=== PATIENT | male | born 1970 | race Caucasian/White ===

== ENCOUNTER 2023-05-12 06:28 | Day surgery (SDC) | payer OTHER ==
[~2023-05-12] VITALS: Ht 172.7 cm; Wt 92.9 kg
[~2023-05-12 06:28] MED LIST: LR 1,000 ML IV SCH; Ondansetron 4 MG/2 ML VIAL IV PRN
[2023-05-12 06:48] VITALS: BP 142/77; PULSE 90; TEMP 97.2
[2023-05-12] MEDS ORDERED: ZETIA 10MG TAB10 MG PO (07:12)
[2023-05-12] MEDS ORDERED: FOLIC ACID 11 MG/TA1 PO (07:12)
[2023-05-12] MEDS ORDERED: NATURAL IRON65 MG (07:13)
[2023-05-12] MEDS ORDERED: SYNTHROID0.112 MG/T PO (07:13)
[2023-05-12] MEDS ORDERED: PRINIVIL40 MG PO (07:14)
[2023-05-12] MEDS ORDERED: PRILOSEC 20MG20 MG PO (07:14)
[2023-05-12] MEDS ORDERED: GLUCOPHAGE850 MG/TAB PO (07:14)
[2023-05-12] MEDS ORDERED: ANDROGEL162PKT TOP (07:15)
[2023-05-12] MEDS ORDERED: ACTOS30 MG PO (07:15)
[2023-05-12] MEDS ORDERED: Insulin Regular Human (NovoLIN R/HumuLIN R) SQ ONE (07:45)
[2023-05-12] MEDS ORDERED: Lidocaine PF 2% (20 MG/ML) 5 ML VIAL ONE (07:56)
--- NOTE | 2023-05-12 08:19 | NUR ---
0752: ORDERS RECEIVED TO GIVE NOVOLIN 2 UNITS IV. GIVEN ORDERED.
[2023-05-12 08:35] VITALS: BP 117/72; PULSE 76; TEMP 97.2
[2023-05-12 08:50] VITALS: BP 124/79; PULSE 76
[2023-05-12 09:05] VITALS: BP 124/74; PULSE 78
[2023-05-12 09:20] VITALS: BP 131/76; PULSE 72
--- NOTE | 2023-05-12 09:55 | NUR ---
0835 RETURNS TO ROOM 1 PER CART. AWAKE, ALERT. RESP UNLABORD. AMBULATES TO RECLINER WITH STANDBY ASSIST. DENIES ABD PAIN NAUSEA OR DYSPHAGIA. VITAL SIGNS OBTAINED. CALL LIGHT AT SIDE 0850 TOLERATES PO WATER AND CHEESE WITHOUT NAUSEA. SWALLOWS WITHOUT DIFFICULTY 0910 DISCHARGE INSTRUCTIONS REVIEWED. PATIEN VERBALIZES UNDERSTANDING. COPY PROVIDED IN DISCHARGE FOLDER 0941 DRESSES SELF. SITS IN RECLINER, AWAITING VISIT WITH 0930 DR OJEDA HERE TO VISIT WITH PATIENT
== END 2023-05-12 09:55 | disposition home or self-care (01) ==
LOC: SDCO 06:28
DX: D12.0 Benign neoplasm of cecum (principal); D12.2 Benign neoplasm of ascending colon; I85.00 Esophageal varices without bleeding; D50.9 Iron deficiency anemia, unspecified; K57.30 Diverticulosis of large intestine without perforation or abscess without bleeding; K63.89 Other specified diseases of intestine; K31.89 Other diseases of stomach and duodenum; K64.0 First degree hemorrhoids; K62.89 Other specified diseases of anus and rectum; K64.4 Residual hemorrhoidal skin tags; K21.9 Gastro-esophageal reflux disease without esophagitis; Z79.899 Other long term (current) drug therapy
CPT/HCPCS: J1815; J2704; J7120